=== PATIENT | male | born 1955 | race Caucasian/White ===

== ENCOUNTER 2018-12-08 16:30 | Observation (INO) ==
--- NOTE | 2018-12-08 17:01 | CT Scan Report ---
CT head/brain wo con CLINICAL HISTORY: Stroke evaluation COMPARISON STUDY: No previous studies for comparison. TECHNIQUE: Axial CT of the brain is performed from the vertex to the skull base. IV contrast was not administered for this examination. A dose lowering technique was utilized adhering to the principles of ALARA. CT DOSE: 729.78 mGycm FINDINGS: No intra or extra-axial mass lesions are visualized. There is no CT evidence of acute cortical infarc tion. There is no evidence of midline shift. There is no acute hemorrhage. No calvarial fractures ar e visualized. There is a prominent CSF space in the right medial temporal region, left basal ganglia. Prominent fro ntal extra-axial fluid is likely secondary to atrophic change. There is no evidence of pathologic ventricular dilatation. There is no evidence of acute sinusitis IMPRESSION: No acute intracranial findings Electronically signed by: Martin Edwards M.D. 12/08/2018 4:59 PM
[2018-12-08] MEDS ORDERED: OPTIRAY 320 125ml IV PRN (17:05)
--- NOTE | 2018-12-08 17:20 | CT Scan Report ---
CT angio head w con CLINICAL HISTORY: Stroke APHASIA TECHNIQUE: CT angiography of the head was performed in a dynamic helical fashion during intravenous a dministration of 119 cc of Optiray 320. MIP imaging was performed. A dose lowering technique was util ized adhering to the principles of ALARA. CT DOSE: COMPARISON STUDY: No previous studies for comparison. FINDINGS: There are no lesion suspicious for aneurysm. There are no major intracranial branch occlusi ons. The dural venous sinuses appear patent. There are no pathologically enhancing masses. IMPRESSION: No significant abnormalities. Electronically signed by: Martin Edwards M.D. 12/08/2018 5:19 PM
--- NOTE | 2018-12-08 17:22 | CT Scan Report ---
CT angio neck with con CLINICAL HISTORY: stroke work up APHASIA COMPARISON STUDY: No previous studies for comparison. TECHNIQUE: CT angiography was performed from the aortic arch to the skull base. MIP imaging was perfo rmed. The patient was scanned in a dynamic helical fashion during intravenous administration of 119 c c of Optiray 320. A dose lowering technique was utilized adhering to the principles of ALARA. CT DOSE: 531.86 mGy.cm Technique: CT angiogram of the carotid and vertebral arteries was obtained using intravenous contrast and 3-D reconstruction. NASCET criteria was utilized. Findings: The right carotid revealed no evidence of aneurysm and no evidence of dissection. There is no evidenc e of hemodynamic significant stenosis. The left carotid revealed no evidence of hemodynamic significant stenosis. There is no evidence of an eurysm. There is no evidence of dissection. There is no evidence of hemodynamically significant vertebral stenosis. There is no evidence of verte bral dissection. IMPRESSION: No evidence of hemodynamically significant carotid or vertebral artery stenosis. No evidence of disse ction. Electronically signed by: Martin Edwards M.D. 12/08/2018 5:21 PM
[2018-12-08 17:25] LABS: Basophils # (auto) 0.06 K/uL (0-0.2); Basophils % (auto) 0.5 %; Eosinophils # (auto) 0.11 K/uL (0-0.5); Eosinophils % (auto) 0.9 %; Hematocrit (blood only) 44.7 % (42-52); Hemoglobin 15.2 g/dL (14.0-18.0); Immature Granulocytes # (auto) 0.02 K/uL (0.00-0.02); Immature Granulocytes % (auto) 0.2 %; Lymphocytes % (auto) 34.3 %; Mean Corpuscular Volume 87.5 fL (80-100); Mean Platelet Volume 11.4 fL (7.4-10.4); Monocytes # (auto) 0.76 K/uL (0.11-0.59); Monocytes % (auto) 6.1 %; Neutrophils # (auto) 7.28 K/uL (1.4-6.5); Platelet Count 130 K/uL (130-400); RDW Coefficient of Variation 13.2 % (11.5-14.5); Red Blood Count 5.11 M/uL (4.7-6.1); White Blood Count 12.53 K/uL (4.8-10.8)
[2018-12-08 17:33] LABS: INR 1.1 (0.9-1.1); Partial Thromboplastin Time 25.9 Seconds (21.0-31.0); Prothrombin Time 11.4 Seconds (9.0-12.0)
[2018-12-08 17:52] LABS: Base Excess VBG -1.8 mEq/L; HCO3 VBG 24 mmol/L; PCO2 VBG 42 mmHg (38-50); PO2 VBG 29 mmHg; pH VBG 7.37 (7.36-7.41)
[2018-12-08 17:52] LABS: Alanine Aminotransferase 30 U/L (12-78); Albumin Level 3.2 gm/dl (3.4-5.0); Aspartate Aminotransferase 14 U/L (15-37); BUN Creatinine Ratio 24.1 (10-20); Blood Urea Nitrogen 26 mg/dl (7-18); Calcium 7.7 mg/dl (8.5-10.1); Carbon Dioxide 25 mmol/L (21-32); Chloride 110 mmol/L (98-107); Creatinine Clr Calc Pharmacy 75.9 ml/min; Est GFR (African American) 83.6; Est GFR (Non-African American) 72.2; Glucose 103 mg/dl (70-99); Potassium 3.4 mmol/L (3.5-5.1); Sodium 139 mmol/L (136-145)
[2018-12-08 17:54] LABS: Oxygen Saturation VBG < 60.0 %
[2018-12-08 17:57] LABS: Albumin Globulin Ratio 1.2 (0.9-2); Alkaline Phosphatase 67 U/L (45-117); Bilirubin,Total 0.3 mg/dl (0.2-1); Globulin 2.6 gm/dl (2.5-4.0); Total Protein 5.8 gm/dl (6.4-8.2); Troponin I < 0.015 ng/ml (0-0.045)
[2018-12-08] MEDS ORDERED: CALCIUM GLUCONATE 10% 2,000 MG in SODIUM CHLORIDE 0.9% 50 ML IV STA (18:04)
--- NOTE | 2018-12-08 19:23 | History & Physical Report ---
Date of Service December 08, 2018 Assessment & Plan (1) Transient global amnesia: This is a 63-year-old male with a PMH of HTN and HLD who presents from home with stroke-like symptoms. -Presents with confusion, forgetfulness regarding events prior to 1530 today -BP elevated at 185/101 upon presentation -CT head, CTA head and CTA neck without acute abnormality -EKG without acute ST changes -No focal neurological deficits on exam -Discussed with neurology service * Likely transient global amnesia * Obtain MRI brain w/wo for further evaluation of CVA * Control BP -Echo with bubble study ordered as well as B12, folate, RPR -Aspirin in AM -Neuro checks -PT, OT, speech therapy evaluations -Telemetry (2) HTN (hypertension): BP elevated to 185/101 initially -Considered hypertensive encephalopathy but no headache, visual changes, chest pain, nausea or vomiting -Kidney function is at baseline -Does not check BP at home so unsure of baseline -Gave home dose HCTZ 12.5mg -Clonidine 0.1mg PO Q6H PRN for SBP >180 or DBP >100 -Monitor (3) HLD (hyperlipidemia): Continue simvastatin (4) Hypocalcemia: Replaced DVT Ppx: SQ Lovenox Code status: FULL code PCP: Clark Dispo: Observation telemetry. Discharge planning ordered per stroke set protocol Patient seen in collaboration with Dr. Alberto. Please see addendum. History of Present Illness Chief Complaint: Confusion, forgetfulness Primary Care Provider: Flor Rodas MD This is a 63-year-old male with a PMH of HTN and HLD who presents from home with stroke-like symptoms. called patient around 1500 and he was in his normal state of health. About a half an hour later, patient started asking questions and seemed confused. Upon further questioning, it became clear to her that he did not recall majority of the events earlier that day. 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 Is unsure whether or not he took medication today. Clearly recalls events occurring yesterday. Denies any falls , seizure or trauma of any sort. Denies any history of stroke or seizures in the past. Denies fever, chills, lightheadedness, headache, difficulty speaking or swallowing, chest pain, palpitations, shortness of breath, abdominal pain, nausea, vomiting, weakness or sensory deficits in extremities. No ambulatory dysfunction. Was found to have elevated BP of 185/101 initially. Afebrile, no leukocytosis. Calcium was low at 7.7. No acute abnormalities on CT head, CTA head or CTA neck. EKG without any acute ST changes. Allergies Allergy/AdvReac Type Severity Reaction Status Date / Time atorvastatin [From Lipitor] Allergy Unknown Verified 12/08/18 16:51 oxaprozin [From Daypro] Allergy Unknown Verified 12/08/18 16:51 pravastatin [From Pravachol] Allergy Unknown Verified 12/08/18 16:51 rosuvastatin [From Crestor] Allergy Unknown Verified 12/08/18 16:51 Home Medications Home Medications Medication Instructions Recorded Confirmed Type hydrochlorothiazide 12.5 mg PO DAILY 12/08/18 12/08/18 History simvastatin 20 mg PO HS 12/08/18 12/08/18 History Past Med/Surg History Medical History HLD (hyperlipidemia) (Chronic) HTN (hypertension) (Chronic) Surgical History H/O colonoscopy (Resolved) Family History Father Heart disease Mother HTN (hypertension) Other Family history non-contributory Social History Current Living Situation: Spouse current occupational status: employed 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 Other Information That Helps Us Care for You: No Feels Safe at Home: Yes Safety Concerns: Feels Safe At This Time Smoking Status: Never smoker Do You Dip or Chew Tobacco: No Hx Alcohol Use: Yes Alcohol Intake Frequency: holidays/special occasions only Hx Substance Use: No Beliefs That Will Affect Care: None Preferred Language: Indian Communication Ability: Effective Review of Systems Constitutional: no fever, no chills and no weakness Eyes: no diplopia and no worsening vision Ear, Nose, Mouth, Throat: no nasal congestion, no sore throat and no pain with swallowing Respiratory: no cough, no dyspnea, no pain on inspiration and no wheezing Cardiovascular: no chest pain, no radiating jaw, neck or arm pain, no dyspnea on exertion, no palpitations and no edema Gastrointestinal: no abdominal pain, no nausea and no vomiting Genitourinary (Male): no dysuria and no hematuria Musculoskeletal: no joint pain Integumentary: no rash, no non-healing lesions and no change in skin color Neurologic: + memory loss; no gait abnormality, no falls, no localized weakness , no paralysis, no numbness, no paresthesia, no lack of coordination, no seizure -like activity, no syncope, no headache(s), no abnormal speech and no confusion Psychiatric: no behavioral changes Physical Exam 2 Vital Signs (Past 24 Hours): Last Vital Signs Temp 36.7 C 12/08/18 16:34 Pulse 62 12/08/18 19:00 Resp 19 12/08/18 19:00 BP 174/93 H 12/08/18 18:31 Pulse Ox 96 12/08/18 19:00 Physical Exam: General Appearance: WD/WN, no apparent distress, resting comfortably Head: normocephalic, atraumatic Eyes: normal inspection, PERRL, EOMI ENT: hearing grossly normal, pharynx normal (moist mucous membranes) Neck: supple, no JVD, no adenopathy Respiratory/Chest: lungs clear to auscultation. No wheezes, rales or rhonci. No respiratory distress or accessory muscle use Cardiovascular: regular rate, rhythm, no murmur, normal peripheral pulses Abdomen/GI: normal bowel sounds, soft, non-tender to palpation Extremities/Musculoskelatal: normal inspection, no calf tenderness, normal capillary refill, no pedal edema Neurologic/Psych: alert, normal mood/affect, oriented x 3. Normal ROM, 5/5 BRAULIO in all for extremities. No gait abnormality. Skin: normal color, warm/dry Results & Data Laboratory Results Short CBC 12/08/18 Range/Units 17:10 WBC 12.53 H (4.8-10.8) K/uL Hgb 15.2 (14.0-18.0) g/dL Hct 44.7 (42-52) % Plt Count 130 (130-400) K/uL BMP 12/08/18 17:10 Sodium 139 Potassium 3.4 L Chloride 110 H Carbon Dioxide 25 BUN 26 H Creatinine 1.08 Glucose 103 H Calcium 7.7 L Cardiac Enzymes 12/08/18 Range/Units 17:10 Troponin I < 0.015 (0-0.045) ng/ml Liver Function 12/08/18 Range/Units 17:10 Total Bilirubin 0.3 (0.2-1) mg/dl AST 14 L (15-37) U/L ALT 30 (12-78) U/L Alkaline Phosphatase 67 (45-117) U/L Albumin 3.2 L (3.4-5.0) gm/dl Diagnostic Findings CT head: IMPRESSION: No acute intracranial findings CTA head: IMPRESSION: No significant abnormalities. CTA neck: IMPRESSION: No evidence of hemodynamically significant carotid or vertebral artery stenosis. No evidence of dissection. ECG Rhythm: normal sinus Additional Comments: short HI interval. Otherwise no abnormalities noted. Code Status & VTE Plan Code Status FULL VTE Prophylaxis Plan VTE Prophylaxis will be ordered: Yes Supervising Physician Co-Signing Physician Notes HISTORY: Record reviewed. Patient interviewed and examined. Care coordinated with Ashley Pena PA-C. Please refer to her documentation for patient's history. Briefly, 63 YO male with history of hypertension and dyslipidemia. Developed amnesia this afternoon. No headaches or focal neuro symptoms. EXAM: General- no distress Lungs- clear to auscultation; no respiratory distress Cardiovascular- RRR; no murmur; no gallop; no JVD; no pretibial edema Abdomen- + bowel sounds, soft, nontender Extremities- no cyanosis; no calf tenderness Neuro- alert, oriented to person; knows day of week; states that year = 2018; able to indicate hospital, but not name; cannot name president; PERRL, EOMI; no facial palsy; no dysarthria; motor upper and lower extremities 5/5; patellar DTR 's 2/2; finger to nose and heel to miller intact bilat Skin- warm & dry DATA: K 3.4. BUN 26, creat 1.08. Ca 7.7, alb 3.2 Other lab studies as noted. CT head negative. CTA cerebral and cervical vessels negative. EKG performed at 1709 reviewed and demonstrated NSR at 90 / minute, no acute changes. ASSESSMENT AND PLAN: Amnesia. No apparent vascular events per CT. Check MRI. Consult Neuro. Hypertension. BP fluctuating in ED. Continue HCTZ. Add clonidine PRN. Allow permissive hypertension is stroke confirmed. Dyslipidemia Check lipid profile. Continue simvastatin. Hypokalemia K = 3.4. Hypokalemia probably secondary to HCTZ. Replace, follow. Hypocalcemia. Serum calcium 7.7 with albumin of 3.2. Calculated corrected calcium slightly low at 8.32. Check repeat BMP in a.m. with phosphorus. Check ionized calcium. Please refer to BALDO Pena's documentation for discussion of other issues.
--- NOTE | 2018-12-08 19:58 | Emergency Department Note ---
Entered by Earlene Crain acting as a scribe for History of Present Illness General Chief complaint: Stroke/CVA Symptoms Stated complaint: COMPLETE MEMORY LOSS Time Seen by Provider: 12/08/18 16:38 Source: patient and other () History of Present Illness Onset (ago): hour(s) (1500 today) Location: head, upper extremity and lower extremity Pain Consistency: + other (after being outside shoveling and burning coal ) Quality: + other (stroke symptoms ) Associated symptoms: + other (Positive repetetive questioning. Negative slurred speech, recent trauma, or recent falls) The patient is a 63 year old white male w/ PMHx of HTN and high cholesterol who presents to the ED w/ CC of stroke symptoms beginning around 1500 today. He is accompanied by his who reports that her 's last known well time was around 1500 today. She states that 30 minutes later, he came into the house and began asking "random and obscure questions." Since then, the patient has been repeating questions. His denies the patient having any slurred speech, recent trauma, or recent falls. She does note that he was outside shoveling and burning coal today before his last known well time. When asked, the patient knows his name, date, and . Home Medications Home Medications Medication Instructions Recorded Confirmed Type hydrochlorothiazide 12.5 mg PO DAILY 12/08/18 12/08/18 History simvastatin 20 mg PO HS 12/08/18 12/08/18 History Allergies Allergy/AdvReac Type Severity Reaction Status Date / Time atorvastatin [From Lipitor] Allergy Unknown Verified 12/08/18 16:51 oxaprozin [From Daypro] Allergy Unknown Verified 12/08/18 16:51 pravastatin [From Pravachol] Allergy Unknown Verified 12/08/18 16:51 rosuvastatin [From Crestor] Allergy Unknown Verified 12/08/18 16:51 Past Med/Surg History Medical History High cholesterol (Chronic) History of hypertension (Chronic) Family History Other Family history non-contributory Social History Feels Safe at Home: Yes Smoking Status: Never smoker Preferred Language: Danish Review of Systems See HPI for pertinent positives & negatives. and A total of 10 systems reviewed and were otherwise negative Physical Exam Vital Signs Vital Signs - 24 hr 12/08/18 16:34 12/08/18 17:06 12/08/18 17:20 Temperature 36.7 C Temperature Source Oral Sepsis Recent Fever Within 48 Hours No Sepsis Action Taken by Nursing No Action Required Pulse Rate 79 72 Pulse Rate [Apical] Respiratory Rate 18 29 H Respiratory Effort / Characteristics Non-Labored Spontaneous Respiratory Depth Normal Respiratory Pattern Regular Blood Pressure 185/101 H 205/98 H Blood Pressure [Left Arm] Blood Pressure Mean 129 133 Blood Pressure Mean [Left Arm] Blood Pressure Position Sitting Pulse Oximetry 94 95 Oxygen Delivery Method Room Air Room Air 12/08/18 17:22 12/08/18 17:28 12/08/18 17:30 Temperature Temperature Source Sepsis Recent Fever Within 48 Hours Sepsis Action Taken by Nursing Pulse Rate 75 82 73 Pulse Rate [Apical] Respiratory Rate 22 23 25 H Respiratory Effort / Characteristics Respiratory Depth Respiratory Pattern Blood Pressure 143/109 H Blood Pressure [Left Arm] Blood Pressure Mean 120 Blood Pressure Mean [Left Arm] Blood Pressure Position Pulse Oximetry 95 95 97 Oxygen Delivery Method 12/08/18 17:31 12/08/18 18:00 12/08/18 18:01 Temperature Temperature Source Sepsis Recent Fever Within 48 Hours Sepsis Action Taken by Nursing Pulse Rate 73 71 68 Pulse Rate [Apical] Respiratory Rate 30 H 16 18 Respiratory Effort / Characteristics Respiratory Depth Respiratory Pattern Blood Pressure 196/101 H 178/100 H Blood Pressure [Left Arm] Blood Pressure Mean 132 126 Blood Pressure Mean [Left Arm] Blood Pressure Position Pulse Oximetry 95 100 100 Oxygen Delivery Method 12/08/18 18:30 12/08/18 18:31 12/08/18 19:00 Temperature Temperature Source Sepsis Recent Fever Within 48 Hours Sepsis Action Taken by Nursing Pulse Rate 68 72 62 Pulse Rate [Apical] Respiratory Rate 17 27 H 19 Respiratory Effort / Characteristics Respiratory Depth Respiratory Pattern Blood Pressure 174/93 H Blood Pressure [Left Arm] Blood Pressure Mean 120 Blood Pressure Mean [Left Arm] Blood Pressure Position Pulse Oximetry 96 94 96 Oxygen Delivery Method 12/08/18 19:25 Temperature Temperature Source Sepsis Recent Fever Within 48 Hours Sepsis Action Taken by Nursing Pulse Rate Pulse Rate [Apical] 66 Respiratory Rate 20 Respiratory Effort / Characteristics Respiratory Depth Normal Respiratory Pattern Blood Pressure Blood Pressure [Left Arm] 190/100 H Blood Pressure Mean Blood Pressure Mean [Left Arm] 130 Blood Pressure Position Pulse Oximetry Oxygen Delivery Method GENERAL: Well appearing, well nourished, NAD, non-toxic. EYE EXAM: Normal conjunctiva. PERRL, no anisocoria and EOM's grossly intact w/o pain OROPHARYNX: No exudate, posterior pharynx is clear, no tonsillar/uvular deviation or swelling. NECK: Supple, no nuchal rigidity, no adenopathy, non-tender. No signs of meningismus LUNGS: Clear to auscultation. Normal chest wall mechanics. HEART: NSR, no MRG ABDOMEN: Abdomen soft, non-tender, normo-active bowel sounds, no masses, no rebound or guarding. BACK: No CVA TTP SKIN: No rashes and no bruising. UPPER EXTREMITIES: Upper extremities are grossly normal. LOWER EXTREMITIES: No pitting edema. No calf pain NEURO EXAM: Cranial nerves II-XII grossly intact, normal speech, 5/5 strength throughout, moves all 4 extremities on command w/o issue. Course 1639: Past medical records reviewed. The patient was evaluated in room , and a complete history and physical examination were performed. 1644: I reviewed the patient's case with Dr. Gutierrez, Neurology. He will come evaluate the patient. 1745: I reviewed the patient's case with Dr. Gutierrez, Neurology. He recommends admission and observation. 1813: I reviewed the patient's case with Ashley Pena PA-C [facility]. She will evaluate the patient for further management. Consultations Consultation #1: I reviewed the patient's case with Dr. Gutierrez Neurology. He will come evaluate the patient. Time: 16:44 Consultation #2: I reviewed the patient's case with Dr. Gutierrez Neurology. He recommends admission and observation. Time: 17:45 Consultation #3: I reviewed the patient's case with Ashley Pena PA-C [facility]. She will evaluate the patient for further management. Time: 18:13 Administered Medications Ioversol (Optiray 320 125ml) 119 ml IV ONCE PRN PRN Reason: Interaction Checking Stop: 12/12/18 17:04 Last Admin: 12/08/18 17:05 Dose: 119 ml Discontinued Medications Calcium Gluconate 2,000 mg/ (Sodium Chloride) 70 mls @ 240 mls/hr IV NOW STA Stop: 12/08/18 18:18 Last Infusion: 12/08/18 18:56 Dose: 0 mls/hr Admin: 12/08/18 18:21 Dose: 240 mls/hr Medical Decision Making Medical Records Attestation: I reviewed the patient's medical records. Home Medications Current Medication List: was personally reviewed by me Laboratory Data Attestation: I reviewed the patient's lab results. Result diagrams: 12/08/18 17:10 12/08/18 17:10 Lab Results 12/08/18 12/08/18 12/08/18 Range/Units 17:10 17:10 17:10 WBC 12.53 H (4.8-10.8) K/uL RBC 5.11 (4.7-6.1) M/uL Hgb 15.2 (14.0-18.0) g/dL Hct 44.7 (42-52) % MCV 87.5 (80-100) fL MCH 29.7 (25-34) pg MCHC 34.0 (32-36) g/dL RDW Std Deviation 42.0 (36.4-46.3) fL RDW Coeff of Chloe 13.2 (11.5-14.5) % Plt Count 130 (130-400) K/uL MPV 11.4 H (7.4-10.4) fL Immature Gran % (Auto) 0.2 % Neut % (Auto) 58.0 % Lymph % (Auto) 34.3 % Forrest % (Auto) 6.1 % Eos % (Auto) 0.9 % Baso % (Auto) 0.5 % Immature Gran # (Auto) 0.02 (0.00-0.02) K/uL Neut # (Auto) 7.28 H (1.4-6.5) K/uL Lymph # (Auto) 4.30 H (1.2-3.4) K/uL Forrest # (Auto) 0.76 H (0.11-0.59) K/uL Eos # (Auto) 0.11 (0-0.5) K/uL Baso # (Auto) 0.06 (0-0.2) K/uL PT 11.4 (9.0-12.0) Seconds INR 1.1 (0.9-1.1) APTT 25.9 (21.0-31.0) Seconds PTT Ratio 1.0 VBG pH (7.36-7.41) VBG pCO2 (38-50) mmHg VBG pO2 mmHg VBG HCO3 mmol/L VBG O2 Saturation % VBG Base Excess mEq/L Carboxyhemoglobin % THgb Barometric Pressure mm/Hg Sodium (136-145) mmol/L Potassium (3.5-5.1) mmol/L Chloride (98-107) mmol/L Carbon Dioxide (21-32) mmol/L Anion Gap (3-11) BUN (7-18) mg/dl Creatinine (0.6-1.4) mg/dl Est Cr Clr Drug Dosing ml/min Est GFR ( Amer) Est GFR (Non-Af Amer) BUN/Creatinine Ratio (10-20) Glucose (70-99) mg/dl POC Glucose (70-99) Calcium (8.5-10.1) mg/dl Magnesium (1.8-2.4) mg/dl Total Bilirubin (0.2-1) mg/dl AST (15-37) U/L ALT (12-78) U/L Alkaline Phosphatase (45-117) U/L Troponin I (0-0.045) ng/ml Total Protein (6.4-8.2) gm/dl Albumin (3.4-5.0) gm/dl Globulin (2.5-4.0) gm/dl Albumin/Globulin Ratio (0.9-2) Blood Type B Negative Antibody Screen NEGATIVE 12/08/18 12/08/18 12/08/18 Range/Units 17:10 17:16 17:38 WBC (4.8-10.8) K/uL RBC (4.7-6.1) M/uL Hgb (14.0-18.0) g/dL Hct (42-52) % MCV (80-100) fL MCH (25-34) pg MCHC (32-36) g/dL RDW Std Deviation (36.4-46.3) fL RDW Coeff of Chloe (11.5-14.5) % Plt Count (130-400) K/uL MPV (7.4-10.4) fL Immature Gran % (Auto) % Neut % (Auto) % Lymph % (Auto) % Forrest % (Auto) % Eos % (Auto) % Baso % (Auto) % Immature Gran # (Auto) (0.00-0.02) K/uL Neut # (Auto) (1.4-6.5) K/uL Lymph # (Auto) (1.2-3.4) K/uL Forrest # (Auto) (0.11-0.59) K/uL Eos # (Auto) (0-0.5) K/uL Baso # (Auto) (0-0.2) K/uL PT (9.0-12.0) Seconds INR (0.9-1.1) APTT (21.0-31.0) Seconds PTT Ratio VBG pH 7.37 (7.36-7.41) VBG pCO2 42 (38-50) mmHg VBG pO2 29 mmHg VBG HCO3 24 mmol/L VBG O2 Saturation < 60.0 % VBG Base Excess -1.8 mEq/L Carboxyhemoglobin % THgb Barometric Pressure 741.6 mm/Hg Sodium 139 (136-145) mmol/L Potassium 3.4 L (3.5-5.1) mmol/L Chloride 110 H (98-107) mmol/L Carbon Dioxide 25 (21-32) mmol/L Anion Gap 4.0 (3-11) BUN 26 H (7-18) mg/dl Creatinine 1.08 (0.6-1.4) mg/dl Est Cr Clr Drug Dosing 75.9 ml/min Est GFR ( Amer) 83.6 Est GFR (Non-Af Amer) 72.2 BUN/Creatinine Ratio 24.1 H (10-20) Glucose 103 H (70-99) mg/dl POC Glucose 101 H (70-99) Calcium 7.7 L (8.5-10.1) mg/dl Magnesium 2.0 (1.8-2.4) mg/dl Total Bilirubin 0.3 (0.2-1) mg/dl AST 14 L (15-37) U/L ALT 30 (12-78) U/L Alkaline Phosphatase 67 (45-117) U/L Troponin I < 0.015 (0-0.045) ng/ml Total Protein 5.8 L (6.4-8.2) gm/dl Albumin 3.2 L (3.4-5.0) gm/dl Globulin 2.6 (2.5-4.0) gm/dl Albumin/Globulin Ratio 1.2 (0.9-2) Blood Type Antibody Screen 12/08/18 Range/Units 17:38 WBC (4.8-10.8) K/uL RBC (4.7-6.1) M/uL Hgb (14.0-18.0) g/dL Hct (42-52) % MCV (80-100) fL MCH (25-34) pg MCHC (32-36) g/dL RDW Std Deviation (36.4-46.3) fL RDW Coeff of Chloe (11.5-14.5) % Plt Count (130-400) K/uL MPV (7.4-10.4) fL Immature Gran % (Auto) % Neut % (Auto) % Lymph % (Auto) % Forrest % (Auto) % Eos % (Auto) % Baso % (Auto) % Immature Gran # (Auto) (0.00-0.02) K/uL Neut # (Auto) (1.4-6.5) K/uL Lymph # (Auto) (1.2-3.4) K/uL Forrest # (Auto) (0.11-0.59) K/uL Eos # (Auto) (0-0.5) K/uL Baso # (Auto) (0-0.2) K/uL PT (9.0-12.0) Seconds INR (0.9-1.1) APTT (21.0-31.0) Seconds PTT Ratio VBG pH (7.36-7.41) VBG pCO2 (38-50) mmHg VBG pO2 mmHg VBG HCO3 mmol/L VBG O2 Saturation % VBG Base Excess mEq/L Carboxyhemoglobin 0.0 % THgb Barometric Pressure mm/Hg Sodium (136-145) mmol/L Potassium (3.5-5.1) mmol/L Chloride (98-107) mmol/L Carbon Dioxide (21-32) mmol/L Anion Gap (3-11) BUN (7-18) mg/dl Creatinine (0.6-1.4) mg/dl Est Cr Clr Drug Dosing ml/min Est GFR ( Amer) Est GFR (Non-Af Amer) BUN/Creatinine Ratio (10-20) Glucose (70-99) mg/dl POC Glucose (70-99) Calcium (8.5-10.1) mg/dl Magnesium (1.8-2.4) mg/dl Total Bilirubin (0.2-1) mg/dl AST (15-37) U/L ALT (12-78) U/L Alkaline Phosphatase (45-117) U/L Troponin I (0-0.045) ng/ml Total Protein (6.4-8.2) gm/dl Albumin (3.4-5.0) gm/dl Globulin (2.5-4.0) gm/dl Albumin/Globulin Ratio (0.9-2) Blood Type Antibody Screen Imaging Data Radiologist's Impression: Radiology results as stated below per my review and the radiologist's interpretation: CT head/brain wo con CLINICAL HISTORY: Stroke evaluation COMPARISON STUDY: No previous studies for comparison. TECHNIQUE: Axial CT of the brain is performed from the vertex to the skull base. IV contrast was not administered for this examination. A dose lowering technique was utilized adhering to the principles of ALARA. CT DOSE: 729.78 mGycm FINDINGS: No intra or extra-axial mass lesions are visualized. There is no CT evidence of acute cortical infarction. There is no evidence of midline shift. There is no acute hemorrhage. No calvarial fractures are visualized. There is a prominent CSF space in the right medial temporal region, left basal ganglia. Prominent frontal extra-axial fluid is likely secondary to atrophic change. There is no evidence of pathologic ventricular dilatation. There is no evidence of acute sinusitis IMPRESSION: No acute intracranial findings Electronically signed by: Martin Edwards M.D. 12/08/2018 4:[address] angio head w con CLINICAL HISTORY: Stroke APHASIA TECHNIQUE: CT angiography of the head was performed in a dynamic helical fashion during intravenous administration of 119 cc of Optiray 320. MIP imaging was performed. A dose lowering technique was utilized adhering to the principles of ALARA. CT DOSE: COMPARISON STUDY: No previous studies for comparison. FINDINGS: There are no lesion suspicious for aneurysm. There are no major intracranial branch occlusions. The dural venous sinuses appear patent. There are no pathologically enhancing masses. IMPRESSION: No significant abnormalities. Electronically signed by: Martin Edwards M.D. 12/08/2018 5:[address] angio neck with con CLINICAL HISTORY: stroke work up APHASIA COMPARISON STUDY: No previous studies for comparison. TECHNIQUE: CT angiography was performed from the aortic arch to the skull base. MIP imaging was performed. The patient was scanned in a dynamic helical fashion during intravenous administration of 119 cc of Optiray 320. A dose lowering technique was utilized adhering to the principles of ALARA. CT DOSE: 531.86 mGy.cm Technique: CT angiogram of the carotid and vertebral arteries was obtained using intravenous contrast and 3-D reconstruction. NASCET criteria was utilized. Findings: The right carotid revealed no evidence of aneurysm and no evidence of dissection. There is no evidence of hemodynamic significant stenosis. The left carotid revealed no evidence of hemodynamic significant stenosis. There is no evidence of aneurysm. There is no evidence of dissection. There is no evidence of hemodynamically significant vertebral stenosis. There is no evidence of vertebral dissection. IMPRESSION: No evidence of hemodynamically significant carotid or vertebral artery stenosis. No evidence of dissection. Electronically signed by: Martin Edwards M.D. 12/08/2018 5:21 PM ECG Data Attestation: I personally reviewed and interpreted this ECG as follows: Indication: other (memory loss) Rate (beats per minute): 90 Rhythm: sinus rhythm Findings: no ST depression, no ST elevation and no acute ischemic change Blood Pressure Blood Pressure Findings: Elevated blood pressure Blood Pressure Disposition: further management by hospitalist MDM Narrative The patient is a 63 year old white male w/ PMHx of HTN and high cholesterol who presents to the ED w/ CC of stroke symptoms beginning around 1500 today. Differential includes acute coronary syndrome, myocardial infarction, CVA, TIA, anemia, infection, pneumonia, UTI, pyelonephritis, poor nutrition, dehydration, electrolyte disturbance,hypoglycemia. Patient was seen and evaluated the bedside. Patient last known well was approximately 3 to 3:30 PM. Per the the patient has been repetitive with strange questioning along with difficulty with memory. On exam the patient is alert and oriented x3 with a GCS of 15. No sensory deficits good finger to nose good and equal symmetric strength. Cranial nerves are intact. Code stroke was initiated and the patient did immediately get a CAT scan along with a CT of the head neck. Additional blood work was obtained. Patient was seen and evaluated with a tele-stroke neurologist. We discussed that the patient had been shoveling some call but this was done in an outdoor area and not in a confined space. The VBG and carboxyhemoglobin were added. Patient's blood work is fairly unremarkable. Calcium was somewhat low which was repleted. CT and CTA of the head and neck did not show any acute abnormalities. Patient was pending urine. VBG unremarkable. Carboxyhemoglobin negative. Patient was admitted to the medicine service for further evaluation and treatment. Impression & Plan Amnesia, Hypocalcemia Discharge Plan Visit Data Chief Complaint: Stroke/CVA Symptoms Stated Complaint: COMPLETE MEMORY LOSS ED Provider: Rigoberto Richardson Discharge Problem: Amnesia, Hypocalcemia Patient Disposition: Being Evaluated by Hospitalist Forms Stand Alone Forms: My [facility] Prescriptions Prescriptions: No Action simvastatin 20 mg tablet 20 mg PO HS RF: 0 hydrochlorothiazide 12.5 mg capsule 12.5 mg PO DAILY RF: 0 Referrals Referrals: Flor Rodas MD [Primary Care Provider] - The scribe's documentation has been prepared under my direction and personally reviewed by me in its entirety. I confirm that the note above accurately reflects all work, treatment, procedures, and medical decision making performed by me.
[2018-12-08] MEDS ORDERED: hydroCHLOROthiazide 25 MG TAB PO STA (20:16)
[2018-12-08] MEDS ORDERED: cloNIDine HCl 0.1 MG TAB PO PRN (20:33)
[2018-12-08] MEDS ORDERED: ONDANSETRON INJ 2 MG/ML 2 ML VIAL IV PRN (20:59)
[2018-12-08] MEDS ORDERED: PHARMACIST DISCHARGE MED REC CONSULT PRN (20:59)
[2018-12-08] MEDS ORDERED: ACETAMINOPHEN 325 MG TAB PO PRN (20:59)
[2018-12-08] MEDS ORDERED: POLYETHYLENE (MIRALAX) 17 GM PACK PO PRN (20:59)
[2018-12-08] MEDS ORDERED: SIMVASTATIN 20 MG TAB PO SCH (21:00)
[2018-12-08] MEDS ORDERED: ENOXAPARIN INJ 40 MG/0.4 ML SYR SQ SCH (22:00)
[2018-12-09 06:36] LABS: Basophils # (auto) 0.06 K/uL (0-0.2); Basophils % (auto) 0.5 %; Eosinophils # (auto) 0.25 K/uL (0-0.5); Eosinophils % (auto) 2.2 %; Hematocrit (blood only) 46.5 % (42-52); Hemoglobin 15.3 g/dL (14.0-18.0); Immature Granulocytes # (auto) 0.03 K/uL (0.00-0.02); Immature Granulocytes % (auto) 0.3 %; Lymphocytes # (auto) 4.92 K/uL (1.2-3.4); Mean Corpuscular Hgb Conc 32.9 g/dL (32-36); Mean Corpuscular Volume 87.6 fL (80-100); Mean Platelet Volume 11.5 fL (7.4-10.4); Monocytes # (auto) 0.94 K/uL (0.11-0.59); Monocytes % (auto) 8.2 %; Neutrophils # (auto) 5.23 K/uL (1.4-6.5); Neutrophils % (auto) 45.8 %; Platelet Count 142 K/uL (130-400); RDW Coefficient of Variation 13.6 % (11.5-14.5); RDW Standard Deviation 43.2 fL (36.4-46.3); Red Blood Count 5.31 M/uL (4.7-6.1); White Blood Count 11.43 K/uL (4.8-10.8)
[2018-12-09 07:13] LABS: BUN Creatinine Ratio 18.4 (10-20); Creatinine Clr Calc Pharmacy 70.4 ml/min; Est GFR (African American) 85.5; Est GFR (Non-African American) 73.8; Potassium 3.7 mmol/L (3.5-5.1)
[2018-12-09 07:16] LABS: Phosphorus 3.5 mg/dl (2.5-4.9)
[2018-12-09] MEDS ORDERED: CALCIUM GLUCONATE 10% 1,000 MG in SODIUM CHLORIDE 0.9% 50 ML IV STA (07:43)
[2018-12-09] MEDS ORDERED: ASPIRIN 81 MG ECTAB PO SCH (09:00)
[2018-12-09] MEDS ORDERED: hydroCHLOROthiazide 25 MG TAB PO SCH (09:00)
[2018-12-09 09:07] LABS: Appearance Urine Clear (Clear); Bilirubin Urine Negative (Negative); Color Urine Yellow; Glucose Urine UA Negative (Negative); Ketones Urine Trace (Negative); Leukocyte Esterase Urine Negative (Negative); Nitrite Urine Negative (Negative); Protein Urine Negative (Negative); Specific Gravity Urine 1.026 (1.000-1.030); Urobilinogen Urine Negative (Negative)
--- NOTE | 2018-12-09 10:46 | XRay Report ---
ORBIT RADIOGRAPHS 3 VIEWS HISTORY: pre-MRI screening. COMPARISON: Head CT December 08, 2018 FINDINGS: There are no radiopaque foreign bodies identified within the orbits. IMPRESSION: No radiopaque foreign bodies identified within the orbits. Electronically signed by: Tomas Canales M.D. 12/09/2018 10:44 AM
[2018-12-09] MEDS ORDERED: GADOBUTROL 65ML VIAL IV PRN (11:22)
--- NOTE | 2018-12-09 11:43 | Magnetic Resonance Report ---
MRI OF THE BRAIN WITHOUT AND WITH IV CONTRAST CLINICAL HISTORY: Stroke-like symptoms. Aphasia. COMPARISON STUDY: Head CT and CTA of the head December 08, 2018. TECHNIQUE: Utilizing a 1.5 Maria R magnet and dedicated coil, multiplanar, multiecho imaging of the br ain was performed pre and postcontrast administration. IV administration of 8 mL of Gadavist contras t was uneventful. FINDINGS: There are no foci of restricted diffusion to suggest acute infarct. No acute intracranial h emorrhage, midline shift or mass effect is present. Brain findings normal. Ventricular system is norm al. Basilar cisterns are patent. There are no extra-axial collections. Flow-voids for the major intra cranial vessels are present. There is no intracranial mass or pathologic enhancement. A few punctate white matter T2 hyperintense foci suggest minimal small vessel disease. Calvarial signal is maintaine d. Orbits and sinuses are unremarkable. Prominent perivascular spaces within the bilateral basal gang stewart are noted. IMPRESSION: Unremarkable MRI of the brain. No acute findings. Electronically signed by: Tomas Canales M.D. 12/09/2018 11:42 AM
[2018-12-09 11:46] LABS: Folate (Folic Acid) 23.53 ng/ml (>5.38)
--- NOTE | 2018-12-09 13:11 | Neurology Consultation ---
Date of Consultation December 09, 2018 Transient Global Amnesia HTN HLD A 63 year old male admitted with transient amnesia yesterday. Symptoms now resolved. MRI brain with an without contrast reviewed. My impression is no acute stroke. Normal appearing MRI brain. - I believe this patient had transient global amnesia (TGA) which is supported by the semiology of his spell (repetitive questions) , no other neurological deficits, resolution of symptoms, and normal appearing MRI brain. - Neuro examine is non focal today. - Vit b12 is 289. Low limit of normal. I suspect this is not related to yesterday episode. - I discussed TGA with patient and this afternoon. The odds of this occurring again are very low. - I will order a routine EEG as an outpatient at [facility] and arrange follow up with myself or Tiffany Cruz PA-C. - I also discussed that his blood pressures have been elevated. Will defer to primary physician for adjustment of home medications. No further neurological work up necessary at this time. Patient ok to discharge from Neuro standpoint. Please call me with any further questions. History of Present Illness Attending Physician: Anjel Archibald MD HPI: A 63 year old man with history of HTN and HLD who was admitted yesterday for amensia and confusion. Blood pressures elevated in the ED. His reports he became confused and was asking repetitive questions yesterday after shoveling coal from truck. No other symptoms including speech problems, muscle weakness, or numbness. denies facial droop. Patient reports feeling better today and feels back to baseline. He is without complaint today. reports he is improved. Denies history of similar symptoms. non smoker. 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 Occassional acohol use. He is on HCTZ at home for blood pressure. Allergies Allergy/AdvReac Type Severity Reaction Status Date / Time atorvastatin [From Lipitor] Allergy Unknown Verified 12/08/18 16:51 oxaprozin [From Daypro] Allergy Unknown Verified 12/08/18 16:51 pravastatin [From Pravachol] Allergy Unknown Verified 12/08/18 16:51 rosuvastatin [From Crestor] Allergy Unknown Verified 12/08/18 16:51 Home Medications Home Medications Medication Instructions Recorded Confirmed Type hydrochlorothiazide 12.5 mg PO DAILY 12/08/18 12/08/18 History simvastatin 20 mg PO HS 12/08/18 12/08/18 History Patient History Medical History HLD (hyperlipidemia) (Chronic) HTN (hypertension) (Chronic) Surgical History H/O colonoscopy (Resolved) Family History Father Heart disease Mother HTN (hypertension) Other Family history non-contributory Social History Current Living Situation: Spouse current occupational status: employed 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 Other Information That Helps Us Care for You: No Feels Safe at Home: Yes Safety Concerns: Feels Safe At This Time Smoking Status: Never smoker Do You Dip or Chew Tobacco: No Hx Alcohol Use: Yes Alcohol Intake Frequency: holidays/special occasions only Hx Substance Use: No Beliefs That Will Affect Care: None Preferred Language: Icelandic Communication Ability: Effective Physical Exam 2 Vital Signs (Past 24 Hours): Last Vital Signs Temp 36.7 C 12/09/18 11:37 Pulse 67 12/09/18 11:37 Resp 19 12/09/18 11:37 BP 166/90 H 12/09/18 11:37 Pulse Ox 95 12/09/18 11:37 Physical Exam: EXAM: Constitutional: appearance normally developed, well nourished and non-obeseH ead and Face: normocephalic and atraumatic Eyes: normal lids, normal conjunctiva Neck: supple Respiratory: normal effort Cardiovascular: regular rhythm Abdomen: non distended Skin: no rashes, lesions, or ulcers noted Psychiatric: normal judgement and insight, normal mood and normal affect NEUROLOGIC EXAMINATION: Appearance: no acute distress Orientation: awake, alert and oriented x 3 Mental Status: alert Memory: Ok, recall is good Attention: normal Knowledge: appropriate Language: no aphasia Speech: no dysarthria Cranial Nerves: CN 2 - no visual defect on confrontation and pupils round, equal, reactive to light CN 3, 4, 6 - extra-ocular movements intact and no nystagmus CN 5 - facial sensation intact CN 7 - no facial asymmetry CN 8 - intact hearing CN 9, 10 - palate symmetric CN 11 - good shoulder shrug CN 12 - tongue midline Gait: deferred Coordination: no ataxia with finger to nose testing, no tremor or dyskinesias Sensory: intact to light touch , no extinction Muscle Tone: normal Muscle exam: 55/ in hands and lower extremities bilateral Reflexes: No clonus, Knees jerks intact bilaterla Results & Data Laboratory Results Vit B12 289 Diagnostic Findings MRI brain with and without reviewed. My impression is Normal appearing MRI brain. CTA head and neck. No significant stenosis
[2018-12-09] MEDS ORDERED: hydroCHLOROthiazide 25 MG TAB PO ONE (14:30)
--- NOTE | 2018-12-09 15:12 | Hospitalist Progress Note ---
Date of Service December 09, 2018 Assessment & Plan (1) Transient global amnesia: This is a 63-year-old male with a PMH of HTN and HLD who presents from home with confusion. 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 He does not remember what happened in the Emergency room but is at baseline since being on medical rizvi -Patient was evaluated in the hospital by neurologist Dr. Mitchell who does not believe that patient had evidence of a stroke. Dr. Mitchell diagnosis is transient global amnesia and believes that this is a low chance of recurrence. He will be arranging EEG for outpatient and follow up appointment with him or his web marketing assistant Tiffany Cruz -no cardiology events on telemetry monitoring -echocardiogram reported by cardiology Dr. Torres to be normal and without evidence for microcavitation or shunting -blood pressure better controlled in the hospital -patient without focal neurological deficits on exam, no further confusion -normal B12 / folic acid -RPR pending results (2) HTN (hypertension): BP elevated to 185/101 initially -Considered hypertensive encephalopathy but no headache, visual changes, chest pain, nausea or vomiting -Kidney function is at baseline -was given home dose HCTZ 12.5mg and had Clonidine 0.1mg PO Q6H PRN for SBP > 180 or DBP >100 on day of presentation -blood pressure better controlled on 12/09/18. Patient to get additional HCTZ 12.5 mg on top of previous 12.5 mg HCTZ and will be discharged with prescription for 25 mg daily -Patient should follow up with primary care doctor (3) HLD (hyperlipidemia): History of dyslipidemia and controlled on simvastatin continue home dose 20 mg simvastatin daily (4) Hypocalcemia: Mild Hypocalemia secondary to Vitamin D deficiency patient received calcium gluconate in the hospital discharge on vitamin D supplements Discharge Instructions Patient should increase the dose of blood pressure medications for HCTZ from 12.5 mg daily to 25 mg daily Patient should take Vitamin D supplements Patient should follow up with primary care doctor 12/11/2018 2:00 PM Flor Rodas MD General Internal Medicine [facility] Patient was evaluated in the hospital by neurologi Dr. Mitchell who does not believe that patient had evidence of a stroke. Dr. Mitchell diagnosis is transient global amnesia and believes that this is a low chance of recurrence. 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 He does not remember what happened in the Emergency room but is at baseline since being on medical rizvi Denies headache, dizziness, chest pain, shortness of breath, or problems with ambulation or balance today. Physical Exam 2 Vital Signs (Past 24 Hours): Last Vital Signs Temp 36.7 C 12/09/18 15:02 Pulse 66 12/09/18 15:02 Resp 19 12/09/18 15:02 BP 176/90 H 12/09/18 15:02 Pulse Ox 95 12/09/18 15:02 Constitutional: WD/WN, vitals as above Eyes: PERRL, conjunctivae normal, anicteric sclerae ENMT: external ear and nose normal, oropharynx normal Neck: trachea midline, no thyromegaly Respiratory: normal respiratory effort, lungs clear to auscultation Cardiovascular: RRR, no murmur, no edema Gastrointestinal (Abdomen): normal bowel sounds, soft, nontender, no hepatosplenomegaly Musculoskeletal: no cyanosis or clubbing, extremities motor strength 5/5 Neurologic: PERRL, EOMI, accommodation nl, no face palsy, no dysarthria CN' s II-XI intact bilaterally Psychiatric: A+Ox3, euthymic affect
--- NOTE | 2018-12-09 15:26 | Discharge Summary ---
Date of Service December 09, 2018 Admission HPI Per Admitting Provider This is a 63-year-old male with a PMH of HTN and HLD who presents from home with stroke-like symptoms. called patient around 1500 and he was in his normal state of health. About a half an hour later, patient started asking questions and seemed confused. Upon further questioning, it became clear to her that he did not recall majority of the events earlier that day. 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 Is unsure whether or not he took medication today. Clearly recalls events occurring yesterday. Denies any falls , seizure or trauma of any sort. Denies any history of stroke or seizures in the past. Denies fever, chills, lightheadedness, headache, difficulty speaking or swallowing, chest pain, palpitations, shortness of breath, abdominal pain, nausea, vomiting, weakness or sensory deficits in extremities. No ambulatory dysfunction. Was found to have elevated BP of 185/101 initially. Afebrile, no leukocytosis. Calcium was low at 7.7. No acute abnormalities on CT head, CTA head or CTA neck. EKG without any acute ST changes. Admission Exam Per Admitting Provider General Appearance: WD/WN, no apparent distress, resting comfortably Head: normocephalic, atraumatic Eyes: normal inspection, PERRL, EOMI ENT: hearing grossly normal, pharynx normal (moist mucous membranes) Neck: supple, no JVD, no adenopathy Respiratory/Chest: lungs clear to auscultation. No wheezes, rales or rhonci. No respiratory distress or accessory muscle use Cardiovascular: regular rate, rhythm, no murmur, normal peripheral pulses Abdomen/GI: normal bowel sounds, soft, non-tender to palpation Extremities/Musculoskelatal: normal inspection, no calf tenderness, normal capillary refill, no pedal edema Neurologic/Psych: alert, normal mood/affect, oriented x 3. Normal ROM, 5/5 BRAULIO in all for extremities. No gait abnormality. Skin: normal color, warm/dry Principal Diagnosis Transient Global Amnesia , Essential Hypertension, Vitamin D deficiency Dyslipidemia controlled on statins Discharge Exam Constitutional WD/WN, vitals as above Eyes PERRL, conjunctivae normal, anicteric sclerae ENMT external ear and nose normal, oropharynx normal Neck trachea midline, no thyromegaly Respiratory normal respiratory effort, lungs clear to auscultation Cardiovascular RRR, no murmur, no edema Gastrointestinal (Abdomen) normal bowel sounds, soft, nontender, no hepatosplenomegaly Musculoskeletal no cyanosis or clubbing, extremities motor strength 5/5 Neurologic PERRL, EOMI, accommodation nl, no face palsy, no dysarthria CN's II-XI intact bilaterally Psychiatric A+Ox3, euthymic affect Discharge Data Allergies Allergy/AdvReac Type Severity Reaction Status Date / Time atorvastatin [From Lipitor] Allergy Unknown Verified 12/08/18 16:51 oxaprozin [From Daypro] Allergy Unknown Verified 12/08/18 16:51 pravastatin [From Pravachol] Allergy Unknown Verified 12/08/18 16:51 rosuvastatin [From Crestor] Allergy Unknown Verified 12/08/18 16:51 Consultations 12/08/18 18:15 ED Decision to Admit Stat 12/08/18 20:59 Consult Case Management - Discharge Planning Routine Consult Neurology Routine Ordered Studies 12/08/18 16:45 CT head/brain wo con Stat 12/08/18 16:46 CT angio head w con Stat CT angio neck with con Stat 12/09/18 10:23 MR brain wo/w con Routine Hospital Course (1) Transient global amnesia: This is a 63-year-old male with a PMH of HTN and HLD who presents from home with confusion. 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 He does not remember what happened in the Emergency room but is at baseline since being on medical rizvi -Patient was evaluated in the hospital by neurologist Dr. Mitchell who does not believe that patient had evidence of a stroke. Dr. Mitchell diagnosis is transient global amnesia and believes that this is a low chance of recurrence. He will be arranging EEG for outpatient and follow up appointment with him or his machine assistant Tiffany Cruz -no cardiology events on telemetry monitoring -echocardiogram reported by cardiology Dr. Torres to be normal and without evidence for microcavitation or shunting -blood pressure better controlled in the hospital -patient without focal neurological deficits on exam, no further confusion -normal B12 / folic acid -RPR pending results (2) HTN (hypertension): BP elevated to 185/101 initially -Considered hypertensive encephalopathy but no headache, visual changes, chest pain, nausea or vomiting -Kidney function is at baseline -was given home dose HCTZ 12.5mg and had Clonidine 0.1mg PO Q6H PRN for SBP > 180 or DBP >100 on day of presentation -blood pressure better controlled on 12/09/18. Patient to get additional HCTZ 12.5 mg on top of previous 12.5 mg HCTZ and will be discharged with prescription for 25 mg daily -Patient should follow up with primary care doctor (3) HLD (hyperlipidemia): History of dyslipidemia and controlled on simvastatin continue home dose 20 mg simvastatin daily (4) Hypocalcemia: Mild Hypocalemia secondary to Vitamin D deficiency patient received calcium gluconate in the hospital discharge on vitamin D supplements Discharge Instructions Patient should increase the dose of blood pressure medications for HCTZ from 12.5 mg daily to 25 mg daily Patient should take Vitamin D supplements Patient should follow up with primary care doctor 12/11/2018 2:00 PM Flor Rodas MD General Internal Medicine [facility] Patient was evaluated in the hospital by neurologi Dr. Mitchell who does not believe that patient had evidence of a stroke. Dr. Mitchell diagnosis is transient global amnesia and believes that this is a low chance of recurrence. He will be arranging EEG for outpatient and follow up appointment with him or his machine assistant [facility] doctor has made tentative appointment for the patient to see neurology clinic on 12/13/2018 10:40 AM Tiffany Cruz PA-C Neurology [facility] Total Time Total Time Spent Total Time Spent (In Minutes): 40 minutes Total Time Includes: Examination of the Patient, Discharge Planning and Medication Reconciliation Discharge Plan Discharge Items Patient Disposition: Home - Self-Care Reason For Visit: STROKE LIKE SYMPTOMS Discharge Diagnosis: Transient Global Amnesia , Essential Hypertension, Dyslipidemia, Vitamin D deficiency Condition: Good Discharge Goals: Diagnostic testing Activity: Resume your previous activity Non-emergency contact: Primary Care Provider Call non-emergency contact if: you have any medication questions Diet: Regular Addtl Provider Instructions: Discharge Instructions Patient should increase the dose of blood pressure medications for HCTZ from 12.5 mg daily to 25 mg daily Patient should take Vitamin D supplements Patient should follow up with primary care doctor 12/11/2018 2:00 PM Flor Rodas MD General Internal Medicine [facility] Patient was evaluated in the hospital by Dr. Mitchell who does not believe that patient had evidence of a stroke. Dr. Mitchell diagnosis is transient global amnesia and believes that this is a low chance of recurrence. He will be arranging EEG for outpatient and follow up appointment with him or his machine assistant [facility] doctor has made tentative appointment for the patient to see neurology clinic on 12/13/2018 10:40 AM Tiffany Cruz PA-C Neurology [facility] Prescriptions: New hydrochlorothiazide 25 mg Tablet 25 mg PO QAM 30 Days Qty: 30 RF: 0 cholecalciferol (vitamin D3) 400 unit tablet,chewable 400 units PO DAILY 15 Days Qty: 15 RF: 0 Continue simvastatin 20 mg tablet 20 mg PO HS RF: 0 Discontinued hydrochlorothiazide 12.5 mg capsule 12.5 mg PO DAILY RF: 0 Stand-Alone Forms: [facility] Discharge Orders: Discharge Order (Routine); Ordered 12/09/18 Ordered By: Anjel Archibald Admission Data Admit Date/Time: 12/08/18 19:12 Attending Provider: Anjel Archibald Admit Provider: Lane Alberto Primary Care Provider: Flor Rodas Other Providers: Olegario Garcia ; Lane Alberto Service: Telemetry Other Interventions: Discharge Summary Assessment (RN) Last Done: 12/09/18 15:02
[2018-12-10 06:32] LABS: Estimated Average Glucose 120 mg/dl
[2018-12-10] MEDS ORDERED: hydroCHLOROthiazide 25 MG TAB PO SCH (09:00)
[2018-12-10] MEDS ORDERED: CHOLECALCIFEROL (VITAMIN D) 400 UNITS TABLET PO SCH (09:00)
== END 2018-12-09 15:34 | disposition home or self-care (01) ==
LOC: 2S 16:30 → ED 16:30 → 2S 20:25